=== PATIENT | female | born 1940 | race Caucasian/White ===

== ENCOUNTER 2025-05-13 15:33 | Inpatient (IN) | payer OTHER ==
[~2025-05-13] VITALS: Ht 160 cm; Wt 79.4 kg
[2025-05-13] MEDS ORDERED: 0.9 % SODIUM CHLORIDE 1,000 ML IV SCH (17:15)
[2025-05-13] MEDS ORDERED: SOD FERRIC GLUC COMPLX/SUCROSE 62.5 MG in 0.9 % SODIUM CHLORIDE 50 ML IV SCH (17:28)
[2025-05-13] MEDS ORDERED: PANTOPRAZOLE SODIUM 80 MG in 0.9 % SODIUM CHLORIDE 100 ML IV SCH (17:30)
[2025-05-13] MEDS ORDERED: FUROsemide 20 MG/2 ML VIAL IV SCH (17:45)
[2025-05-13 19:40] LABS: BASO % 0.2 % (0.1-1.2); EOS # 0.04 (0.04-0.54); EOS % 0.3 % (0.7-7.0); HEMATOCRIT 27.4 % (34.1-44.9); LYMPH # 2.45 (1.18-3.74); LYMPH % 15.4 % (19.3-53.1); MEAN CORPUSCULAR HEMOGLOBIN 30.3 pg (25.6-32.2); MONO # 1.29 (0.24-0.82); MONO % 8.1 % (4.7-12.5); NEUT # 11.37 (1.56-6.13); NEUT % 71.4 % (34.0-71.1); PLATELET COUNT 276 K/uL (163-369); RED BLOOD COUNT 2.97 M/uL (3.93-5.22); RED CELL DISTRIBUTION WIDTH 18.1 % (11.6-14.4)
[2025-05-13 20:07] LABS: CALCIUM 8.8 mg/dL (8.5-10.1); CREATININE SERUM 0.81 mg/dL (0.55-1.02); GFR 67.2; POTASSIUM 3.75 mEq/L (3.5-5.1)
[2025-05-13] MEDS ORDERED: CARVEDILOL 6.25 MG TABLET PO SCH (21:00)
[2025-05-13 21:23] VITALS: BP 111/72; O2SAT 98
[2025-05-14 01:08] VITALS: BP 108/74; O2SAT 100
[2025-05-14] MEDS ORDERED: SYNTHROID 25 MCG (MARCA ORIGINAL) PO SCH (06:00)
[2025-05-14 08:12] LABS: BASO % 0.2 % (0.1-1.2); EOS # 0.09 (0.04-0.54); EOS % 0.7 % (0.7-7.0); LYMPH # 2.28 (1.18-3.74); LYMPH % 17.8 % (19.3-53.1); MEAN CORPUSCULAR HEMOGLOBIN 30.1 pg (25.6-32.2); MONO # 1.13 (0.24-0.82); MONO % 8.8 % (4.7-12.5); NEUT # 8.67 (1.56-6.13); PLATELET COUNT 264 K/uL (163-369); RED BLOOD COUNT 2.72 M/uL (3.93-5.22); RED CELL DISTRIBUTION WIDTH 17.7 % (11.6-14.4)
[2025-05-14 08:14] LABS: HEMATOCRIT 25.1 % (34.1-44.9); HEMOGLOBIN 8.2 g/dL (11.2-15.7)
[2025-05-14 08:29] LABS: ERYTHROCYTE SEDIMENTATION RATE 18 mm/hr (0-30)
[2025-05-14 08:31] VITALS: BP 123/81; O2SAT 95
[2025-05-14 08:41] LABS: INR 1.1; PROTHROMBIN TIME 11.9 SECONDS (9.0-11.5)
[2025-05-14 08:51] LABS: PHOSPHOROUS 2.6 mg/dL (2.5-4.9); T4 TOTAL 6.23 UG/DL (4.8-13.9)
[2025-05-14 09:03] LABS: C-REACTIVE PROTEIN < 0.29 MG/DL (0.00-0.29)
[2025-05-14 16:00] VITALS: BP 100/59; O2SAT 98
[2025-05-14] MEDS ORDERED: ATORVASTATIN CALCIUM 40 MG TABLET PO SCH (17:00)
[2025-05-15 00:55] VITALS: BP 110/62; O2SAT 98
[2025-05-15 07:21] LABS: CALCIUM 8.5 mg/dL (8.5-10.1); CREATININE SERUM 0.59 mg/dL (0.55-1.02); GFR 96.87; POTASSIUM 3.86 mEq/L (3.5-5.1)
[2025-05-15 08:10] LABS: BASO % 0.2 % (0.1-1.2); EOS # 0.07 (0.04-0.54); EOS % 0.5 % (0.7-7.0); HEMATOCRIT 30.7 % (34.1-44.9); LYMPH # 1.71 (1.18-3.74); LYMPH % 11.8 % (19.3-53.1); MEAN CORPUSCULAR HEMOGLOBIN 29.6 pg (25.6-32.2); MONO # 1.05 (0.24-0.82); MONO % 7.2 % (4.7-12.5); NEUT # 11.27 (1.56-6.13); NEUT % 77.8 % (34.0-71.1); PLATELET COUNT 266 K/uL (163-369); RED BLOOD COUNT 3.38 M/uL (3.93-5.22); RED CELL DISTRIBUTION WIDTH 19.1 % (11.6-14.4)
[2025-05-15 08:20] VITALS: BP 126/79; O2SAT 95
[2025-05-15 16:00] VITALS: BP 112/69; O2SAT 99
[2025-05-16 00:23] VITALS: BP 108/63; O2SAT 96
[2025-05-16 08:49] VITALS: BP 110/69; O2SAT 96
[2025-05-16 11:24] LABS: BASO % 0.2 % (0.1-1.2); EOS # 0.11 (0.04-0.54); EOS % 0.8 % (0.7-7.0); HEMATOCRIT 30.6 % (34.1-44.9); LYMPH # 1.87 (1.18-3.74); LYMPH % 12.8 % (19.3-53.1); MEAN CORPUSCULAR HEMOGLOBIN 29.3 pg (25.6-32.2); MONO # 1.03 (0.24-0.82); NEUT % 76.5 % (34.0-71.1); PLATELET COUNT 226 K/uL (163-369); RED BLOOD COUNT 3.38 M/uL (3.93-5.22); RED CELL DISTRIBUTION WIDTH 19.9 % (11.6-14.4)
[2025-05-16 11:26] LABS: HEMOGLOBIN 9.9 g/dL (11.2-15.7)
[2025-05-16 12:10] LABS: ALBUMIN 2.5 gm/dL (3.4-5.0); BILIRUBIN TOTAL 0.97 mg/dL (0.3-1.2); CALCIUM 8.9 mg/dL (8.5-10.1); CREATININE SERUM 0.65 mg/dL (0.55-1.02); GFR 86.63; GLOBULINA 3.2 G/DL (2.4-3.5); POTASSIUM 3.77 mEq/L (3.5-5.1); TOTAL PROTEIN 5.7 gm/dL (6.4-8.2)
== END 2025-05-16 14:06 | disposition designated cancer center or children's hospital (05) | DRG 377 ==
LOC: SURH 15:33
PROVIDERS: Internal Medicine; Internal Medicine Geriatric Medicine; ADMIT Surgery; ATTEND Surgery
PROC: 30233N1 Transfusion of Nonautologous Red Blood Cells into Peripheral Vein, Percutaneous Approach (ICD-10-PCS; principal; 2025-05-14)
PROC: 4A12X4Z Monitoring of Cardiac Electrical Activity, External Approach (ICD-10-PCS; 2025-05-14)
PROC: B246ZZZ Ultrasonography of Right and Left Heart (ICD-10-PCS; 2025-05-14)
PROC: 02HV33Z Insertion of Infusion Device into Superior Vena Cava, Percutaneous Approach (ICD-10-PCS; 2025-05-15)
PROC: B548ZZA Ultrasonography of Superior Vena Cava, Guidance (ICD-10-PCS; 2025-05-15)
PROC: B020ZZZ Computerized Tomography (CT Scan) of Brain (ICD-10-PCS; 2025-05-16)
PROC: B030ZZZ Magnetic Resonance Imaging (MRI) of Brain (ICD-10-PCS; 2025-05-16)
DX: K92.1 Melena (principal); I63.311 Cerebral infarction due to thrombosis of right middle cerebral artery; G81.94 Hemiplegia, unspecified affecting left nondominant side; I48.20 Chronic atrial fibrillation, unspecified; D62 Acute posthemorrhagic anemia; K27.9 Peptic ulcer, site unspecified, unspecified as acute or chronic, without hemorrhage or perforation; R47.81 Slurred speech; D64.89 Other specified anemias; F03.90 Unspecified dementia, unspecified severity, without behavioral disturbance, psychotic disturbance, mood disturbance, and anxiety; I10 Essential (primary) hypertension; E03.9 Hypothyroidism, unspecified; R42 Dizziness and giddiness; Z79.01 Long term (current) use of anticoagulants
CPT/HCPCS: 70544